=== PATIENT | male | born 1955 | race Caucasian/White ===

== ENCOUNTER → 2018-10-18 | Day surgery (SDC) | payer OTHER ==
[~2018-10-18] MED LIST: B&O 60MG R/S 60 MG SUPP PR ONE; CEFTRIAXONE SOD 1 GM/NS 50 ML 50 ML IV ONE; DEXAMETHASONE SOD PHOS INJ 4 MG/ML VIAL ONE; FENTANYL CITRATE/PF 100MCG/2 ML INJ ONE; FLOMAX0.4 MG PO; GENTAMICIN 80MG/NS 100 ML 100 ML IV ONE; IOPAMIDOL 610MG/1ML 300 MG/ML VIAL IV ONE; LIDOCAINE HCL 2% LOCAL INJ 5 ML SDV VIAL INJ ONE; MIDAZOLAM HCL 2 MG/2 ML VIAL ONE; ONDANSETRON HCL INJ 2MG/ML 2ML 2 MG/ML VIAL ONE; PROPOFOL IV EMULSION 10 MG/ML 20 ML VIAL ONE; SEVOFLURANE INHAL SOLN 250 ML PEN BTL ONE; SIMVASTATIN40 MG PO; TESTOSTERO200 MG/1 M INJ; VIAGRA100 MG PO; naproxen
--- OUTSIDE RECORDS SUMMARY | 2018-10-18 07:03 | XMS REPORT | Clinical Summary ---
Author Author [facility] Organization [facility] Address Unknown Phone Unavailable Care Team Providers Care Prosthodontist/Owner Name Role Phone Asked, No Pcp PCP Unavailable Allergies Not on File Medications Not on file Active Problems Not on file Social History Date Tobacco Use Types Packs/Day Years Used Never Assessed Sex Assigned at Date Recorded Not on file Industry Job Start Date Occupation Not on file Not on file Not on file Travel End Travel History Travel Start No recent travel history available. Last Filed Vital Signs Not on file Plan of Treatment Health Maintenance Due Date Last Done Comments COLONOSCOPY SCREENING 2007 SHINGLES VACCINES (#1) 2007 INFLUENZA VACCINE 12/07/2018 Results Not on fileafter 10/17/2017 Insurance Type Payer Benefit Subscriber ID Effective Phone Address Plan / Dates Group HMO/PPO [facility] xxxxxxxxx [id number] THCARE resent CHOICE/CHO ICE + Advance Directives Patient has advance care planning documents on file. For more information, [employer] contact: Vito Lombardi [address] [place] [phone]
--- OUTSIDE RECORDS SUMMARY | 2018-10-18 07:03 | XMS REPORT | Encounter Summary ---
Author Organization Unknown Address [address] [place] [address] Phone [phone] Care Team Providers Care Pole Inspector Name Role Phone Dr. Jose Angel Roe 3 [phone] Bud Kendall MD 115 [phone] Reason for Visit Hyperlipidemia Instructions 1. Hyperlipidemia simvastatin 40 mg tablet high cholesterol: care instructions CMP, serum or plasma lipid panel, serum TSH, serum or plasma CBC w/ auto diff 2. Immunization Adacel (Tdap Adolesn/Adult)(PF)2 Lf-(2.5-5-3-5)-5 Lf/0.5 mL IM syringe 3. Screening for malignant neoplasm of colon 4. Body mass index 25-29 - overweight learning about healthy weight Discussion Note: None recorded. Plan of Care Reminders Provider Appointments Return to Office on or around 12/03/2018 Jose Angel Dykes MD Lab CMP, Serum or Plasma 06/06/2018 [facility] Lipid Panel, Serum 06/06/2018 [facility] TSH, Serum or Plasma 06/06/2018 [facility] CBC W/ Auto Diff 06/06/2018 [facility] Referral None recorded. Procedures None recorded. Surgeries None recorded. Imaging None recorded. Medications Name Start Date naproxen sodium ER (CR) 375 mg tablet,extended release 24 hr mphase Take 1 tablet 4 times a day by oral route for 30 days. sildenafil 100 mg tablet 1 daily as needed simvastatin 40 mg tablet TAKE 1 TABLET BY MOUTH EVERY DAY DIRECTED tamsulosin 0.4 mg capsule Take 1 capsule twice a day by oral route. testosterone cypionate 200 mg/mL intramuscular oil Inject 1 mg every 2 weeks by intramusc. route. Medications Administered None recorded. Vitals Height Weight BMI Blood Pressure 6 ft 6 in 256 lbs 29.6 kg/m2 120/90 mm[Hg] Lab Results None recorded. Allergies Code Code System Name Reaction Severity Status Onset NKDA Problems Name Status Onset Date Source Hyperlipidemia Active 02/09/2016 Primary Erectile Dysfunction Active 02/09/2016 Procedures Date Name Performed by 05/09/2017 Orthopedic Surgery Information not available 03/09/2017 Knee Surgery Information not available 05/09/2016 Orthopedic Surgery Information not available 01/08/2016 Prostate Biopsy, Any Mthd Information not available Colonoscopy Information not available Vaccine List Vaccine Type influenza, injectable, quadrivalent 01/07/2015 influenza, unspecified formulation 02/06/2018 Tdap 06/06/20180.5 mL zoster 06/21/20170.65 mL Social History Smoking Status Never Smoker Past Encounters 06/06/2018 Hyperlipidemia; Immunization; Screening for Malignant Neoplasm of Colon; Body Mass Index 25-29 - Overweight Jose Angel Dykes MD: [id number] [place] [address], Ph. History of Present Illness Note:F/u on HLD. Needs refill in simvastatin. Compliant with meds. Non compliant with diet or exercise. No side effects. No new symptoms Review of Systems Comprehensive General Adult ROS Reported By: Patient Constitutional: Constitutional: no fever Eyes: Eyes: no vision change Cardiovascular: Cardiovascular: no chest pain, no palpitations, no lightheadedness Respiratory: Respiratory: no cough, no wheezing, no shortness of breath Gastrointestinal: Gastrointestinal: no abdominal pain, no nausea, no vomiting, no constipation, no diarrhea Musculoskeletal: Musculoskeletal: no muscle aches, no swelling in the extremities Neurologic: Neurologic: no loss of consciousness, no headaches Psychiatric: Psych: no depression, no alcohol abuse, no anxiety, no suicidal thoughts Physical Exam General Adult Exam (male) Reported By: Patient Constitutional: General Appearance: healthy-appearing, obese. Level of Distress: NAD. Ambulation: ambulating normally Eyes: Lids and Conjunctivae: non-injected, no discharge Neck: Neck: supple, trachea midline. Thyroid: no enlargement, non-tender Lungs: Auscultation: breath sounds normal Cardiovascular: Heart Auscultation: RRR, normal S1, normal S2, no murmurs. Neck vessels: no carotid bruits. Pulses including femoral / pedal: normal throughout Abdomen: Inspection and Palpation: soft, non-distended, no tenderness, no guarding Musculoskeletal:: Motor Strength and Tone: normal, normal tone. Extremities: no edema Neurologic: Gait and Station: normal gait
[2018-10-18 10:55] VITALS: BP 126/81
--- NOTE | 2018-12-07 03:05 | Operative Report ---
DATE OF PROCEDURE: 10/18/2018 SURGEON: Bud Kendall MD PREOPERATIVE DIAGNOSES: 1. Obstructive benign prostatic hyperplasia. 2. Incomplete bladder emptying. POSTOPERATIVE DIAGNOSES: 1. Obstructive benign prostatic hyperplasia. 2. Incomplete bladder emptying. OPERATIONS PERFORMED: 1. Cystourethroscopy with bilateral ureteral catheterization and retrograde ureteropyelography (separate procedure performed for the incomplete bladder emptying). 2. Interpretation of retrograde ureteropyelography. 3. Supervision of fluoroscopy, no radiologist present. 4. Cystourethroscopy with transurethral implantation of four UroLift implants (separate procedure performed for the obstructive BPH). ANESTHESIA: General. COMPLICATIONS: None. CLINICAL SUMMARY: Asher Hopper is a 63-year-old man with long-standing BPH. He is elected to proceed with surgery as planned. He is aware of the risks of bleeding, infection, injury to adjacent structures, need for additional procedures, and elected to proceed. OPERATIVE PROCEDURE IN DETAIL: Informed consent was verified. Asher Hopper was properly identified, taken to the operating room, placed on the cystoscopy table in supine position. Anesthesia was uneventfully begun. The patient was then carefully and gently repositioned in dorsal lithotomy position with all pressure points well padded. His genitalia were prepared and draped in usual sterile fashion. The cystoscope sheath with the visual obturator in place, was atraumatically inserted. The patient's urethra was guided unremarkable distal urethra through some wide caliber, not clinically significant stricture disease and just outside the sphincteric region, went through the normal sphincteric region, went through the prostate bed, which was significant for bilobar BPH with visual obstruction. We entered the patient's bladder and drained it. Panendoscopy revealed grade 2 trabeculations, but no tumors, no stones, and no diverticula. Normally positioned configured ureteral orifices were identified. An 8-[place] catheter was used to cannulate each ureter and retrograde ureteropyelograms were performed. Interpretation of retrograde ureteropyelography contrast was instilled in retrograde fashion bilaterally. There were no tumors, no stones, and no diverticula. Unobstructed drainage was observed bilaterally fluoroscopically. We drained the bladder, we then atraumatically placed with the visual obturator the UroLift cystoscope sheath. We then deployed four UroLift implants. Each UroLift implant was deployed on either side, 1.5 cm distal to the bladder neck and two were placed on either side of the verumontanum and in anterolateral position. This resulted in continuous anterior open urinary channel. There was oozing at each of the UroLift implant sites. Therefore, decided to leave an 18-[place] Shine catheter in place. Belladonna and opium suppository were placed revealing a 50 g prostate that is smooth, non-fluctuant, without any nodules. The patient was then uneventfully reversed from anesthesia and taken to recovery room in stable condition. There were no complications of the procedure. He tolerated the procedure well. Explicit postoperative instructions were given. We will plan on returning the patient for followup in the office. Of course, at followup appointments, we will plan to monitor the patient's long-standing BPH with serial uroflowmetry and ultrasonography tests. MD MELLISA El/MIKE /[id number]
== END | disposition home or self-care (01) ==
LOC: OR 06:54
PROVIDERS: ATTEND Urology
DX: N40.1 Benign prostatic hyperplasia with lower urinary tract symptoms (principal); N13.8 Other obstructive and reflux uropathy; R39.14 Feeling of incomplete bladder emptying; N32.89 Other specified disorders of bladder; J45.909 Unspecified asthma, uncomplicated; E78.5 Hyperlipidemia, unspecified; I44.0 Atrioventricular block, first degree; R00.1 Bradycardia, unspecified; Z01.810 Encounter for preprocedural cardiovascular examination
CPT/HCPCS: 52005; C9740; 74420; 93005; J0696; J1100; J1580; J2001; J2250; J2405; J3010; L8699

== ENCOUNTER → 2022-09-27 | Day surgery (SDC) | payer MEDICARE ==
[2022-09-21 15:33] LABS: BASOPHILS % 0.2 % (0.0-1.0); EOSINOPHILS # (AUTO) 0.1 (0.0-0.4); EOSINOPHILS % 1.8 % (0.0-6.0); HEMATOCRIT 41.6 % (38.2-49.6); HEMOGLOBIN 13.8 g/dL (14.0-18.0); LYMPHOCYTES # (AUTO) 0.9 (1.0-3.2); LYMPHOCYTES % 15.6 % (18.0-39.1); MEAN CORPUSCULAR HEMOGLOBIN 31.8 pg (28-32); MEAN CORPUSCULAR HGB CONC 33.2 g/dL (31-35); MEAN CORPUSCULAR VOLUME 95.9 fL (81-99); MONOCYTES # (AUTO) 0.5 (0.2-0.8); MONOCYTES % 9.6 % (4.4-11.3); NEUTROPHILS # (AUTO) 3.9 (2.1-6.9); NEUTROPHILS % 72.4 % (38.7-80.0); PLATELET COUNT 169 x10e3/uL (140-360); RED BLOOD COUNT 4.34 x10e6/uL (4.3-5.7)
[~2022-09-27] MED LIST changes: -B&O 60MG R/S 60 MG SUPP PR ONE; -CEFTRIAXONE SOD 1 GM/NS 50 ML 50 ML IV ONE; -DEXAMETHASONE SOD PHOS INJ 4 MG/ML VIAL ONE; +FINASTERIDE5 MG PO; -GENTAMICIN 80MG/NS 100 ML 100 ML IV ONE; +GLUCAGON FOR INJ 1 MG VIAL ONE; +GLYCOPYRROLATE INJ 0.2 MG/ML VIAL ONE; +HYOSCYAMINE SULFATE 0.5 MG/ML INJ ONE; -IOPAMIDOL 610MG/1ML 300 MG/ML VIAL IV ONE; +KETAMINE HCL INJ 50 MG/ML 10 ML VIAL ONE; +LACTATED RINGER'S 1,000 ML ONE; +METOCLOPRAMIDE HCL 10 MG/2ML VIAL ONE; -ONDANSETRON HCL INJ 2MG/ML 2ML 2 MG/ML VIAL ONE; +POVIDONE IODINE 0.05% 0.05 % ML PO ONE; -SEVOFLURANE INHAL SOLN 250 ML PEN BTL ONE
[2022-09-27 09:28] VITALS: TEMP 97.5
[2022-09-27 09:55] VITALS: BP 127/80; PULSE 70; RESP 16; O2SAT 96
== END | disposition home or self-care (01) ==
LOC: OR 07:40
PROVIDERS: ATTEND Internal Medicine Gastroenterology
DX: K22.2 Esophageal obstruction (principal); D12.0 Benign neoplasm of cecum; K31.7 Polyp of stomach and duodenum; K29.50 Unspecified chronic gastritis without bleeding; K22.10 Ulcer of esophagus without bleeding; K44.9 Diaphragmatic hernia without obstruction or gangrene; K57.30 Diverticulosis of large intestine without perforation or abscess without bleeding; K64.8 Other hemorrhoids; Z71.3 Dietary counseling and surveillance; C44.90 Unspecified malignant neoplasm of skin, unspecified; I10 Essential (primary) hypertension; E78.00 Pure hypercholesterolemia, unspecified; Z01.810 Encounter for preprocedural cardiovascular examination; Z01.812 Encounter for preprocedural laboratory examination; Z68.28 Body mass index [BMI] 28.0-28.9, adult; Z80.0 Family history of malignant neoplasm of digestive organs
CPT/HCPCS: 36415; 43239; 43450; 45380; 45385; 85025; 93005; C9113; J1610; J1980; J2001; J2250; J2704; J2765; J3010; J7121; 45378